=== PATIENT | female | born 2000 | race Two or more races ===

== ENCOUNTER 2023-12-27 07:59 | Emergency (ER) | payer SELFPAY ==
[~2023-12-27] VITALS: Ht 170.2 cm; Wt 81.8 kg
[2023-12-27 08:00] VITALS: BP 141/86; PULSE 112; RESP 18; O2SAT 99
== END 2023-12-27 08:31 | disposition left against medical advice (07) ==
LOC: EDBD 07:59 → ER 07:59
DX: T40.411A Poisoning by fentanyl or fentanyl analogs, accidental (unintentional), initial encounter (principal); F17.210 Nicotine dependence, cigarettes, uncomplicated; F10.90 Alcohol use, unspecified, uncomplicated; F15.90 Other stimulant use, unspecified, uncomplicated; Y90.0 Blood alcohol level of less than 20 mg/100 ml; Y92.89 Other specified places as the place of occurrence of the external cause